=== PATIENT | male | born 1960 | race Caucasian/White ===

== ENCOUNTER 2023-10-11 07:47 | Emergency (ER) | payer MEDICAID ==
[~2023-10-11] VITALS: Ht 172.7 cm; Wt 70.0 kg
[2023-10-11 07:52] VITALS: O2SAT 99
[2023-10-11] MEDS ORDERED: FAMOTIDINE 20MG/2ML VIAL IV ONE (08:15)
[2023-10-11] MEDS ORDERED: ONDANSETRON HCL 4MG/2ML INJ IV ONE (08:15)
[2023-10-11 08:49] LABS: HEMATOCRIT. 45.4 % (42.0-52.0); HEMOGLOBIN. 15.1 g/dL (14.0-18.0); MEAN CORPUSCULAR HEMOGLOBIN 30.9 pg (28.0-32.0); MEAN CORPUSCULAR HGB CONC 33.2 g/dL (31.0-37.0); MEAN CORPUSCULAR VOLUME 93.1 fL (80.0-94.0); MEAN PLATELET VOLUME 8.3 fl (7.4-10.4); PLATELET 261 x1000/uL (130-400); RED BLOOD CELL COUNT 4.87 mill/uL (4.7-6.1); RED CELL DISTRIBUTION WIDTH 13.6 % (11.6-14.6); WHITE BLOOD COUNT 15.5 x1000/uL (4.5-11.0)
[2023-10-11 09:07] LABS: PROTHROMBIN TIME 10.6 sec (9.6-11.0)
[2023-10-11 09:09] LABS: ALANINE AMINOTRANSFERASE 23 IU/L (10-49); ALBUMIN 4.9 g/dL (3.2-4.8); ASPARTATE AMINOTRANSFERASE 27 IU/L (<34); BILIRUBIN TOTAL 0.7 mg/dL (0.1-1.0); CARBON DIOXIDE 27 mEq/L (21-32); CHLORIDE 103 mEq/L (98-107); DIFFERENTIAL COMMENT 1; GLUCOSE 138 mg/dL (70-105); POTASSIUM 3.8 mEq/L (3.5-5.1); PROTEIN TOTAL 8.2 g/dL (6.0-8.3); SODIUM 136 mEq/L (136-145); UREA NITROGEN BLOOD 20 mg/dL (9-23)
[2023-10-11 09:11] LABS: TROPONIN I HIGH SENSITIVITY < 4 ng/L (3.0-53)
[2023-10-11] MEDS: KETOROLAC 15MG/ML VIAL IV ONE (09:23)
[2023-10-11] MEDS: ONDANSETRON HCL 4MG/2ML INJ IV NR (09:24)
[2023-10-11] MEDS: FAMOTIDINE 20MG/2ML VIAL IV NR (09:24)
[2023-10-11] MEDS: SODIUM CHLORIDE 0.9% 1,000 ML IV ONE (09:24)
[2023-10-11 10:00] VITALS: BP 123/78; PULSE 74; RESP 15; TEMP 98.6
[2023-10-11 10:28] LABS: PLATELET ESTIMATE NORMAL
== END 2023-10-11 11:32 | disposition home or self-care (01) ==
LOC: ER 08:07
DX: K52.9 Noninfective gastroenteritis and colitis, unspecified (principal); I10 Essential (primary) hypertension
CPT/HCPCS: 99284; 96374; 96375; 96361; 80053; 83605; 83690; 85025; 85610; 84484; 36415; J3490; J1885; J2405; J7030